=== PATIENT | female | born 1945 | race Caucasian/White ===

== ENCOUNTER 2016-07-08 09:10 | Outpatient (CLI) | payer OTHER | END 2016-07-08 18:24 | disposition home or self-care (01) | LOC: SUS 09:10 | PROVIDERS: ATTEND Internal Medicine | DX: R59.0 Localized enlarged lymph nodes (principal) | CPT/HCPCS: 76642 ==

== ENCOUNTER 2016-11-25 10:14 | Outpatient (CLI) | payer OTHER | END 2016-11-25 19:43 | disposition home or self-care (01) | LOC: SUS 10:14 | PROVIDERS: ATTEND Internal Medicine | DX: R22.9 Localized swelling, mass and lump, unspecified (principal) | CPT/HCPCS: 76642 ==

== ENCOUNTER 2017-04-13 10:11 | Outpatient (CLI) | payer OTHER | END 2017-04-13 18:43 | disposition home or self-care (01) | LOC: SMA 10:11 | PROVIDERS: ATTEND Internal Medicine | DX: Z12.31 Encounter for screening mammogram for malignant neoplasm of breast (principal); R92.1 Mammographic calcification found on diagnostic imaging of breast | CPT/HCPCS: 77067 ==